=== PATIENT | male | born 1995 | race Caucasian/White ===

== ENCOUNTER 2016-12-05 19:49 | Emergency (ER) | payer OTHER ==
[~2016-12-05] VITALS: Ht 172.7 cm; Wt 72.7 kg
[2016-12-05] MEDS ORDERED: NORCO 5/3251 TABLET PO (22:24)
[2016-12-05 23:02] VITALS: BP 143/83
== END 2016-12-05 23:04 | disposition home or self-care (01) ==
LOC: EME → TRA 19:49 → EME 19:49 → TRA 20:29
DX: S80.11XA Contusion of right lower leg, initial encounter (principal); S80.01XA Contusion of right knee, initial encounter; S06.9X1A Unspecified intracranial injury with loss of consciousness of 30 minutes or less, initial encounter; V29.88XA Motorcycle rider (driver) (passenger) injured in other specified transport accidents, initial encounter
CPT/HCPCS: 70450; 73564; 99281; 99284

== ENCOUNTER 2016-12-13 10:03 | Emergency (ER) | payer OTHER ==
[~2016-12-13] VITALS: Ht 172.7 cm; Wt 73.1 kg
[~2016-12-13 10:03] MED LIST: NORCO 5/3251 TABLET PO
[2016-12-13 13:12] VITALS: BP 159/98
[2016-12-13] MEDS ORDERED: MOTRIN600 MG PO (14:18)
== END 2016-12-13 14:36 | disposition home or self-care (01) ==
LOC: EME 10:03
DX: S80.01XA Contusion of right knee, initial encounter (principal); V29.9XXA Motorcycle rider (driver) (passenger) injured in unspecified traffic accident, initial encounter; M25.461 Effusion, right knee
CPT/HCPCS: 73564; 99281; 99284